=== PATIENT | male | born 1995 | race Hispanic/Latino ===

== ENCOUNTER 2016-12-31 02:11 | Emergency (ER) | payer BC ==
[2016-12-31 02:28] VITALS: TEMP 98
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
[2016-12-31] MEDS ORDERED: Lidocaine/Epi 1% 1:100000 20 ML IJ STA (03:57)
[2016-12-31] MEDS ORDERED: Lidocaine 2% w Epi 1:100,000 Inj IJ ONE ×2 (03:58→03:59)
[2016-12-31 04:36] VITALS: BP 112/76; PULSE 98; RESP 16; O2SAT 99
--- NOTE | 2016-12-31 09:04 | CT ---
PROCEDURE: CT HEAD WITHOUT CONTRAST. HISTORY: etoh, head injury COMPARISON: None available. TECHNIQUE: Axial computed tomography images were obtained through the head/brain without intravenous contrast. Radiation dose: Total exam DLP = mGy-cm. This CT exam was performed using one or more of the following dose reduction techniques: Automated exposure control, adjustment of the mA and/or kV according to patient size, and/or use of iterative reconstruction technique. FINDINGS: HEMORRHAGE: No intracranial hemorrhage. BRAIN: No mass effect or edema. No atrophy or chronic microvascular ischemic changes. VENTRICLES: Unremarkable. No hydrocephalus. CALVARIUM: Unremarkable. PARANASAL SINUSES: Unremarkable as visualized. No significant inflammatory changes. MASTOID AIR CELLS: Unremarkable as visualized. No inflammatory changes. OTHER FINDINGS: None. IMPRESSION: Normal CT of the Head.
== END 2016-12-31 04:29 | disposition home or self-care (01) ==
LOC: H.ER 02:11
DX: S01.01XA Laceration without foreign body of scalp, initial encounter (principal); F10.129 Alcohol abuse with intoxication, unspecified; W03.XXXA Other fall on same level due to collision with another person, initial encounter; Y93.9 Activity, unspecified; Y92.512 Supermarket, store or market as the place of occurrence of the external cause

== ENCOUNTER 2017-08-19 00:03 | Emergency (ER) | payer BC ==
[2017-08-19 00:43] VITALS: BP 130/86; PULSE 90; RESP 20; TEMP 98.6
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
[2017-08-19 00:44] VITALS: O2SAT 96
== END 2017-08-19 00:43 | disposition home or self-care (01) ==
LOC: H.ER 00:03
DX: Z72.89 Other problems related to lifestyle (principal); F10.10 Alcohol abuse, uncomplicated; Y90.9 Presence of alcohol in blood, level not specified